=== PATIENT | male | born 1975 | race Caucasian/White ===

== ENCOUNTER 2016-06-12 17:13 | Emergency (ER) | payer BC ==
[2016-06-12 17:29] VITALS: BP 150/98
--- NOTE | 2016-06-12 18:21 | UC ---
Respiratory Complaint HPI - HPI Summary HPI Summary: cough for the past 3 weeks, thought it was getting better but took a turn for the worse 3 days ago, headache and just feels like crap. - History of Current Complaint Chief Complaint: UCGeneralIllness Stated Complaint: COLD SYMPTOMS Time Seen by Provider: 06/12/16 17:43 Hx Obtained From: Patient Onset/Duration: Gradual Onset, Lasting Weeks Timing: Constant Severity Initially: Moderate Severity Currently: Severe Pain Intensity: 7 Pain Scale Used: 0-10 Numeric Character: Cough: Nonproductive Aggravating Factors: Deep Breaths, Recumbent Position Associated Signs And Symptoms: Positive: Dyspnea, Wheezing, URI - Risk Factors Pulmonary Embolism Risk Factors: Negative - Allergies/Home Medications Allergies/Adverse Reactions: Allergies Allergy/AdvReac Type Severity Reaction Status Date / Time No Known Allergies Allergy Verified 11/15/15 15:28 PMH/Surg Hx/FS Hx/Imm Hx Previously Healthy: Yes Endocrine History Of: Denies: Diabetes, Thyroid Disease, Hyperthyroidism, Hypothyroidism, Dyslipidemia Cardiovascular History Of: Reports: Hypertension - He has a history of elevated blood pressures in doctor offices. Denies: Cardiac Disorders, Pacemaker/ICD, Myocardial Infarction, Congestive Heart Failure, Atrial Fibrillation, Deep Vein Thrombosis, Bleeding Disorders Respiratory History Of: Denies: COPD, Asthma, Bronchitis, Pneumonia, Pulmonary Embolism GI/ History Of: Denies: Gastroesophageal Reflux, Ulcer, Gastrointestinal Bleed, Gall Bladder Disease, Kidney Stones, Diverticulitis, Renal Disease, Urosepsis Neurological History Of: Reports: Migraine - He has "headache issues" but he has not seen anyone for it. Denies: TIA, CVA, Dementia, Seizures Psychological History Of: Denies: Anxiety, Depression, Bipolar Disorder, Schizophrenia, Post Traumatic Stress Disorder Cancer History Of: Denies: Lung Cancer, Colorectal Cancer, Breast Cancer, Prostate Cancer, Cervical Cancer Other History Of: Negative For: HIV, Hepatitis B, Hepatitis C - Surgical History Surgical History: Yes Surgery Procedure, Year, and Place: bilateral laser eye surgery - Family History Known Family History: Negative: Cardiac Disease, Hypertension, Diabetes - Social History Alcohol Use: None Substance Use Type: None Smoking Status (MU): Never Smoked Tobacco Type: Smokeless Tobacco Review of Systems Constitutional: Fatigue Skin: Negative Eyes: Eye Redness ENT: Sore Throat, Nasal Discharge Respiratory: Shortness Of Breath, Cough Cardiovascular: Negative Gastrointestinal: Negative Genitourinary: Negative Motor: Negative Neurovascular: Negative Musculoskeletal: Negative Neurological: Headache Psychological: Negative All Other Systems Reviewed And Are Negative: Yes Physical Exam Triage Information Reviewed: Yes Appearance: Well-Nourished, Ill-Appearing, Pain Distress Vital Signs: Initial Vital Signs Temp 98.1 F 06/12/16 17:23 Pulse 106 06/12/16 17:23 Resp 16 06/12/16 17:23 BP 150/98 06/12/16 17:23 Pulse Ox 98 06/12/16 17:23 Vital Signs Reviewed: Yes Eye Exam: Normal Eyes: Positive: Conjunctiva Inflamed ENT: Positive: Pharyngeal erythema, Nasal congestion, TMs normal, Muffled/ hoarse voice Dental Exam: Normal Neck exam: Normal Neck: Positive: Supple, Nontender, No Lymphadenopathy Respiratory Exam: Normal Respiratory: Positive: Chest non-tender, No respiratory distress, No accessory muscle use, Wheezing, Inspiration Cardiovascular Exam: Normal Cardiovascular: Positive: RRR, No Murmur, Pulses Normal Abdominal Exam: Normal Abdomen Description: Positive: Nontender, No Organomegaly, Soft Bowel Sounds: Positive: Present Musculoskeletal Exam: Normal Musculoskeletal: Positive: Strength Intact, ROM Intact, No Edema Neurological Exam: Normal Neurological: Positive: Alert, Muscle Tone Normal Psychological Exam: Normal Skin Exam: Normal UC Diagnostic Evaluation - Laboratory O2 Sat by Pulse Oximetry: 98 Respiratory Course/Dx - Course Course Of Treatment: hx obtained, exam performed, medications prescribed. - Differential Dx/Diagnosis Differential Diagnosis/HQI/PQRI: Asthma, Bronchitis, Influenza, Laryngitis, Sinusitis Provider Diagnoses: URI Discharge - Discharge Plan Condition: Stable Disposition: HOME Prescriptions: predniSONE TAB* [Deltasone TAB*] 40 mg PO DAILY #10 tab Patient Education Materials: Upper Respiratory Infection (ED) Referrals: Lane Michel MD [Primary Care Provider] - Additional Instructions: Take the prednisone as prescribed start tomorrow morning. Increase your fluid intake and get plenty of rest. Follow up with any increasing symptoms.
== END 2016-06-12 18:21 | disposition home or self-care (01) ==
LOC: UCCORT 17:13
DX: J06.9 Acute upper respiratory infection, unspecified (principal)
CPT/HCPCS: 99212; G0463

== ENCOUNTER 2016-06-24 16:54 | Emergency (ER) | payer BC ==
[2016-06-24 19:31] VITALS: BP 148/109
[2016-06-24] MEDS ORDERED: Azithromycin TAB* 250 MG PO ONE (19:38)
[2016-06-24] MEDS ORDERED: Benzonatate CAP* 100 MG PO ONE (19:39)
--- NOTE | 2016-06-24 19:51 | UC ---
Respiratory Complaint HPI - HPI Summary HPI Summary: pt c/o cough, laryngitis X 3 weeks, was treated 2 weeks ago with prednisone and URI symptoms improved - History of Current Complaint Chief Complaint: UCRespiratory Stated Complaint: FEVER/LARYNGITIS Time Seen by Provider: 06/24/16 19:28 Hx Obtained From: Patient Onset/Duration: Gradual Onset, Lasting Weeks Timing: Constant Severity Initially: Mild Severity Currently: Mild Character: Cough: Nonproductive Aggravating Factors: Deep Breaths, Recumbent Position Associated Signs And Symptoms: Positive: Hoarseness - Risk Factors Pulmonary Embolism Risk Factors: Negative Cardiac Risk Factors: Negative - Allergies/Home Medications Allergies/Adverse Reactions: Allergies Allergy/AdvReac Type Severity Reaction Status Date / Time No Known Allergies Allergy Verified 06/24/16 19:31 PMH/Surg Hx/FS Hx/Imm Hx Previously Healthy: Yes Endocrine History Of: Denies: Diabetes, Thyroid Disease, Hyperthyroidism, Hypothyroidism, Dyslipidemia Cardiovascular History Of: Reports: Hypertension - He has a history of elevated blood pressures in doctor offices. Denies: Cardiac Disorders, Pacemaker/ICD, Myocardial Infarction, Congestive Heart Failure, Atrial Fibrillation, Deep Vein Thrombosis, Bleeding Disorders Respiratory History Of: Denies: COPD, Asthma, Bronchitis, Pneumonia, Pulmonary Embolism GI/ History Of: Denies: Gastroesophageal Reflux, Ulcer, Gastrointestinal Bleed, Gall Bladder Disease, Kidney Stones, Diverticulitis, Renal Disease, Urosepsis Neurological History Of: Reports: Migraine - He has "headache issues" but he has not seen anyone for it. Denies: TIA, CVA, Dementia, Seizures Psychological History Of: Denies: Anxiety, Depression, Bipolar Disorder, Schizophrenia, Post Traumatic Stress Disorder Cancer History Of: Denies: Lung Cancer, Colorectal Cancer, Breast Cancer, Prostate Cancer, Cervical Cancer Other History Of: Negative For: HIV, Hepatitis B, Hepatitis C - Surgical History Surgical History: Yes Surgery Procedure, Year, and Place: bilateral laser eye surgery - Family History Known Family History: Negative: Cardiac Disease, Hypertension, Diabetes - Social History Lives: Alone Alcohol Use: None Substance Use Type: None Smoking Status (MU): Never Smoked Tobacco Type: Smokeless Tobacco Review of Systems Constitutional: Negative Skin: Negative Eyes: Negative ENT: Sore Throat Respiratory: Cough Cardiovascular: Negative Gastrointestinal: Negative Genitourinary: Negative Motor: Negative Neurovascular: Negative Musculoskeletal: Negative Neurological: Negative Psychological: Negative All Other Systems Reviewed And Are Negative: Yes Physical Exam Triage Information Reviewed: Yes Appearance: Ill-Appearing Vital Signs: Initial Vital Signs Temp 97.9 F 06/24/16 19:27 Pulse 112 06/24/16 19:27 Resp 16 06/24/16 19:27 BP 148/109 06/24/16 19:27 Pulse Ox 100 06/24/16 19:27 Eye Exam: Normal ENT Exam: Other ENT: Positive: Other: - PND Neck exam: Normal Respiratory Exam: Normal Cardiovascular Exam: Normal Musculoskeletal Exam: Normal Neurological Exam: Normal Psychological Exam: Normal Skin Exam: Normal UC Diagnostic Evaluation - Laboratory O2 Sat by Pulse Oximetry: 100 Respiratory Course/Dx - Differential Dx/Diagnosis Differential Diagnosis/HQI/PQRI: Bronchitis, Laryngitis Provider Diagnoses: Bronchitis. laryngitis Discharge - Discharge Plan Condition: Stable Disposition: HOME Prescriptions: Azithromycin TAB* [Zithromax TAB (Z-LISSETH) 250 mg #6 tabs] 250 mg PO DAILY #4 tab Patient Education Materials: Acute Bronchitis (ED) Referrals: Lane Michel MD [Primary Care Provider] -
== END 2016-06-24 19:54 | disposition home or self-care (01) ==
LOC: UCCORT 16:54
DX: J40 Bronchitis, not specified as acute or chronic (principal)
CPT/HCPCS: 99212; A9270-GY; G0463

== ENCOUNTER 2017-06-26 21:14 | Emergency (ER) | payer BC ==
[2017-06-26 21:27] VITALS: BP 150/109
--- NOTE | 2017-06-26 21:42 | UC ---
FLU HPI - HPI Summary HPI Summary: 42 y/o male presents to the urgent care c/o sinus congestion w/ clear nasal discharge, dry cough, +PND, MCMAHON, body aches, fever, chills sicne 06/23/2017. Pt has taken Nyquill, Dayquill to alleviate symptoms w/o any improvement. Pain is 5 /10. Pt denies SOB, chest congestion, chest pain, abdominal pain, N/V/D. - History of Current Complaint Hx Obtained From: Patient Onset/Duration: Gradual Onset, Lasting Days - 3 days, Still Present, Worse Since - today Severity Currently: Mild Severity Initially: Moderate Pain Intensity: 5 Pain Scale Used: 0-10 Numeric Associated Signs & Symptoms: Positive: Fever, Myalgia, Cough, Nasal Congestion, Headache - Risk Factors Influenza Risk Factors: Negative <Lisseth Butts - Last Filed: 06/27/17 11:42> <Tonya Daniel - Last Filed: 06/27/17 12:06> - History of Current Complaint Chief Complaint: UCGeneralIllness Stated Complaint: FLU SYMPTOMS Time Seen by Provider: 06/26/17 21:29 - Allergy/Home Medications Allergies/Adverse Reactions: Allergies Allergy/AdvReac Type Severity Reaction Status Date / Time No Known Allergies Allergy Verified 06/26/17 21:27 Home Medications: Home Medications Ranitidine TAB (NF) [Zantac TAB (NF)] 150 mg PO DAILY 06/26/17 [History Confirmed 06/26/17] PMH/Surg Hx/FS Hx/Imm Hx Previously Healthy: Yes Cardiovascular History: Hypertension Other Cardiovascular History: Aortic aneurym GI/ History: Gastroesophageal Reflux Other History Of: Negative For: HIV, Hepatitis B, Hepatitis C - Surgical History Surgical History: Yes Surgery Procedure, Year, and Place: bilateral laser eye surgery - Family History Known Family History: Positive: Cardiac Disease Negative: Hypertension, Diabetes - Social History Occupation: Employed Full-time Lives: With Family Alcohol Use: Occasionally Substance Use Type: None Smoking Status (MU): Never Smoked Tobacco Type: Smokeless Tobacco <Lisseth Butts - Last Filed: 06/27/17 11:42> Review of Systems Constitutional: Fever, Chills, Fatigue, Other - body aches Skin: Negative Eyes: Negative ENT: Nasal Discharge, Sinus Congestion Respiratory: Cough Cardiovascular: Negative Genitourinary: Negative Motor: Negative Neurovascular: Negative Musculoskeletal: Negative Neurological: Headache Psychological: Negative Is Patient Immunocompromised?: No All Other Systems Reviewed And Are Negative: Yes <Lisseth Butts - Last Filed: 06/27/17 11:42> Physical Exam Triage Information Reviewed: Yes Vital Signs: Initial Vital Signs Temp 98.6 F 06/26/17 21:21 Pulse 112 06/26/17 21:21 Resp 17 06/26/17 21:21 BP 150/109 06/26/17 21:21 Pulse Ox 97 06/26/17 21:21 - Additional Comments VITAL SIGNS: Reviewed. GENERAL: Patient is a well developed and nourished male who is sitting comfortable in the examining table. Patient is not in any acute respiratory distress. HEAD AND FACE: No signs of trauma. No ecchymosis, hematomas or skull depressions. No sinus tenderness. edematous erythematous nasal mucosa with clear discharge, EYES: PERRLA, EOMI x 2, No injected conjunctiva, clear watery eyes, no nystagmus. No photophobia. EARS: Hearing grossly intact. Ear canals and tympanic membranes are within normal limits. MOUTH: Positive pharynx with mild erythema, no exudates,no palatal petechiae. no B/L tonsillar enlargement Uvula in midline. NECK: Supple, trachea is midline, Positive anterior cervical lymphadenopathy, no JVD, no carotid bruit, no c-spine tenderness, neck with full ROM. No meningeal signs, no Kernig's or brudzinskis signs. CHEST: Symmetric, no tenderness at palpation LUNGS: Clear to auscultation bilaterally. No wheezing or crackles. CVS: Regular rate and rhythm, S1 and S2 present, no murmurs or gallops appreciated. ABDOMEN: Soft, non-tender. No signs of distention. No rebound no guarding, and no masses palpated. Bowel sounds are normal. EXTREMITIES: FROM in all major joints, no edema, no cyanosis or clubbing. NEURO: Alert and oriented x 3. No acute neurological deficits. Speech is normal and follows commands. SKIN: Dry and warm <Lisseth Butts - Last Filed: 06/27/17 11:42> Vital Signs: Initial Vital Signs Temp 98.6 F 06/26/17 21:21 Pulse 112 06/26/17 21:21 Resp 17 06/26/17 21:21 BP 150/109 06/26/17 21:21 Pulse Ox 97 06/26/17 21:21 <Tonya Daniel - Last Filed: 06/27/17 12:06> Flu Course/Dx - Course Course Of Treatment: 42 y/o male presents to the urgent care c/o sinus congestion w/ clear nasal discharge, dry cough, +PND, MCMAHON, body aches, fever, chills sicne 06/23/2017. Pt has taken Nyquill, Dayquill to alleviate symptoms w/o any improvement. Pain is 5/10. Pt denies SOB, chest congestion, chest pain, abdominal pain, N/V/D. Hx obtained. Pt with URI on examination. Influenza A&B ordered: result: Influenza A& B positive. Nurse repeated test and return +for influenza A&B again. Pt Rx Tamiflu, Tessalon tabs, Albuterol inhaler and Tylenol PO to alleviates symptoms. First dose of Tamiflu given at the clinic. Pt tolerated well mediacation. Advised on hand washing and wear a mask to avoid spreading. Pt advised to rest, increase fluid intake, eat well and avoid strenuous exercise. Strongly advised If symptoms worsen to go immediately to the ER for further Tx.Pt's BP is elevated today advised to decrease salt in diet , monitor BP and f/u with PCP for further management. Pt understood and agreed with plan of care. - Differential Dx/Diagnosis Differential Diagnosis/HQI/PQRI: Bronchitis, Influenza, Pneumonia, Upper Respiratory Infection Provider Diagnoses: 1- Influenza A&B. 2-Cough. 3-Uncontrolled HTN <Lisseth Butts - Last Filed: 06/27/17 11:42> Discharge <Lisseth Butts - Last Filed: 06/27/17 11:42> <Tonya Daniel - Last Filed: 06/27/17 12:06> - Discharge Plan Condition: Stable Disposition: HOME Prescriptions: Acetaminophen TAB* [Tylenol TAB*] 650 mg PO Q6H PRN #30 tab PRN Reason: Fever Benzonatate CAP* [Tessalon 100 MG CAP*] 100 mg PO TID PRN #21 cap PRN Reason: Cough Oseltamivir CAP* [Tamiflu CAP*] 75 mg PO BID #9 cap Patient Education Materials: Influenza (ED), Low-Sodium Diet (ED) Forms: *Work Release Referrals: Lane Michel MD [Primary Care Provider] - 2 Days Additional Instructions: 1- Please take the full course of the antiviral to avoid resistance. Encourage hand washing and wear a mask to avoid spreading. 2-Please continue taking Tylenol PO q6-8hrs prn as instructed after meals to alleviate fever, and sore throat. Increase fluid intake, eat well, rest and avoid strenuous exercise 3- Take tessalon tabs PO as directed to alleviate cough 4-If symptoms do not improve or worsen please return to the urgent care or f/u with your PCP in 2 days for further evaluation and treatment. 5-Your BP is elevated today. please decrease salt in your diet, monitor BP and if it continues to be elevated please f/u with your PCP for further management Attestation Statement User Type: Provider - I was available for consult. This patient was seen by the [facility]. The patient was not presented to, seen by, or examined by me. Elissa <Tonya Daniel - Last Filed: 06/27/17 12:06>
[2017-06-26] MEDS ORDERED: Oseltamivir CAP* 75 MG CAP PO ONE (22:08)
== END 2017-06-26 22:22 | disposition home or self-care (01) ==
LOC: UCCORT 21:14
DX: J09.X2 Influenza due to identified novel influenza A virus with other respiratory manifestations (principal); J10.1 Influenza due to other identified influenza virus with other respiratory manifestations; R05 Cough; I10 Essential (primary) hypertension; K21.9 Gastro-esophageal reflux disease without esophagitis
CPT/HCPCS: 87502; 99212; A9270-GY; G0463

== ENCOUNTER 2024-03-11 08:38 | Observation (INO) ==
[2024-03-11 09:12] LABS: ABS Basophils 0.2 10^3/uL (0.0-0.1); ABS Eosinophils 0.1 10^3/uL (0.0-0.5); ABS Lymphocytes 2.5 10^3/uL (1.0-4.8); ABS Monocytes 0.6 10^3/uL (0.0-1.1); ABS Nucleated RBC 0.03 10^3/ul; Eosinophil % 0.9 %; Hematocrit 50.7 % (38-53); Lymphocyte % 21.7 %; Mean Corpuscular Hemoglobin 31.2 pg (27-33); Mean Corpuscular Hgb Conc 35.5 g/dL (31-36); Mean Corpuscular Volume 87.9 fL (80-97); Mean Platelet Volume 8.8 fL (7.5-11.2); Nucleated Red Blood Cells % 0.2 %/100WBC (0.0-0.8); Platelet Count 245 10^3/uL (150-450); Red Blood Count 5.77 10^6/uL (4.06-5.63); Red Cell Distribution Width 12.9 % (12-17); White Blood Count 11.4 10^3/uL (3.6-10.2)
[2024-03-11 09:32] LABS: INR 1.04 (0.85-1.14)
[2024-03-11 09:49] LABS: Albumin 4.7 g/dL (3.2-5.2); Calcium 9.4 mg/dL (8.6-10.3); Creatinine, Serum 1.5 mg/dL (0.67-1.17); Globulin 2.4 g/dL (2-4); Potassium 3.9 mmol/L (3.5-5.0); Total Protein 7.1 g/dL (6.4-8.9); eGFR CKD-EPI 56.4 (>60)
[2024-03-11] MEDS: NS 0.9% 1000 ml BAG 1,000 ML IV ONE (10:22)
[2024-03-11] MEDS: Iodixanol 320 (CONTRAST) 100 ML SDV IV ONE (11:00)
[2024-03-11 12:16] LABS: High Sensitivity Troponin 1 Hr 12 pg/mL (<20)
[2024-03-11] MEDS ORDERED: Polyethylene Glycol 3350 17 GM PACKET PO PRN (18:35)
[2024-03-11] MEDS ORDERED: Senna TAB 8.6 mg TAB PO PRN (18:35)
[2024-03-11] MEDS: Al Hydrox/Mg Hydrox/Simet LIQ 30 ML UDC PO ONE (19:34)
[2024-03-12 06:02] LABS: ABS Basophils 0.1 10^3/uL (0.0-0.1); ABS Eosinophils 0.2 10^3/uL (0.0-0.5); ABS Lymphocytes 3.1 10^3/uL (1.0-4.8); ABS Monocytes 0.6 10^3/uL (0.0-1.1); ABS Nucleated RBC 0.01 10^3/ul; Eosinophil % 1.9 %; Hematocrit 43.6 % (38-53); Hemoglobin 15.5 g/dL (13.2-16.3); Lymphocyte % 30.6 %; Mean Corpuscular Hemoglobin 31.1 pg (27-33); Mean Corpuscular Hgb Conc 35.5 g/dL (31-36); Mean Corpuscular Volume 87.5 fL (80-97); Mean Platelet Volume 8.4 fL (7.5-11.2); Nucleated Red Blood Cells % 0.1 %/100WBC (0.0-0.8); Platelet Count 208 10^3/uL (150-450); Red Blood Count 4.98 10^6/uL (4.06-5.63); Red Cell Distribution Width 12.7 % (12-17)
[2024-03-12 07:01] LABS: Calcium 8.7 mg/dL (8.6-10.3); Creatinine, Serum 1.14 mg/dL (0.67-1.17); Potassium 4.1 mmol/L (3.5-5.0); eGFR CKD-EPI 78.4 (>60)
[2024-03-12 09:07] LABS: High Sensitivity Troponin 3 Hr 5 pg/mL (<20)
[2024-03-12] MEDS: Al Hydrox/Mg Hydrox/Simet LIQ 30 ML UDC PO ONE ×3 (09:32→19:34)
[2024-03-12] MEDS: Influenza Vaccine *TRI* 2024-25* 0.5 ML SYRINGE IM ONE (10:44)
[2024-03-12] MEDS: COVID VAC 24-25 (12+) (Moderna) Syringe 0.5 mL IM ONE (10:46)
[2024-03-12] MEDS: Al Hydrox/Mg Hydrox/Simet LIQ 30 ML UDC ONE (14:34)
[2024-03-12] MEDS ORDERED: Sulfur Hexaflouride MICROSPHR 25 MG VIAL ONE (15:02)
[2024-03-12] MEDS: Sulfur Hexaflouride MICROSPHR 25 MG VIAL IV PRN (15:15)
[2024-03-12] MEDS: Morphine 4 MG/ML VIAL (1 ml) IV ONE (16:05)
[2024-03-12 18:30] VITALS: BP 138/95
== END 2024-03-12 19:45 | disposition home or self-care (01) ==
LOC: EDHOLD 08:38 → ED 08:38 → MEDTELE 21:45
PROVIDERS: ADMIT Internal Medicine; ATTEND Internal Medicine